=== PATIENT | male | born 1970 | race Caucasian/White ===

== ENCOUNTER 2024-06-18 12:39 | Emergency (ER) | payer OTHER ==
[~2024-06-18] VITALS: Ht 182.9 cm; Wt 68.0 kg
[2024-06-18 12:40] VITALS: O2SAT 100
[2024-06-18 13:01] VITALS: BP 174/108; PULSE 101; RESP 16; TEMP 36.7; O2SAT 97
[2024-06-18] MEDS ORDERED: KETOROLAC 30MG/ML VIAL IM ONE (15:45)
== END 2024-06-18 15:56 | disposition home or self-care (01) ==
LOC: ER 12:39
DX: M25.552 Pain in left hip (principal); M54.50 Low back pain, unspecified; I10 Essential (primary) hypertension; V19.9XXA Pedal cyclist (driver) (passenger) injured in unspecified traffic accident, initial encounter; Y92.410 Unspecified street and highway as the place of occurrence of the external cause; Y93.55 Activity, bike riding
CPT/HCPCS: 71045; 72131; 73502; 99284

== ENCOUNTER 2025-01-21 12:09 | Inpatient (IN) | payer MEDICAID ==
[~2025-01-21] VITALS: Ht 172.7 cm; Wt 54.9 kg
[~2025-01-21 12:09] MED LIST: AMLO10TA80 PO; FAMO20TA8 PO; FOLI-43 PO; LISI40TA21 PO; METO25TA6 PO; SULF1TAB47 MT; THIA100T72 PO
[2025-01-21] MEDS ORDERED: VANCOMYCIN 1000MG/250ML 250 ML IV SCH (13:30)
[2025-01-21] MEDS: SODIUM CHLORIDE 0.9% (SEPSIS BOLUS) IV ONE (13:59)
[2025-01-21 14:02] LABS: HEMATOCRIT. 40.7 % (42.0-52.0); HEMOGLOBIN. 13.3 g/dL (14.0-18.0); MEAN PLATELET VOLUME 7.1 fl (7.4-10.4); PLATELET 611 x1000/uL (130-400); RED BLOOD CELL COUNT 4.18 mill/uL (4.7-6.1); RED CELL DISTRIBUTION WIDTH 13.4 % (11.6-14.6)
[2025-01-21 14:16] LABS: INR 1.1
[2025-01-21 14:17] LABS: UREA NITROGEN BLOOD 91 mg/dL (9-23)
[2025-01-21 14:18] LABS: TROPONIN I HIGH SENSITIVITY 22 ng/L (3.0-53)
[2025-01-21 14:19] LABS: ASPARTATE AMINOTRANSFERASE 224 IU/L (<34); BILIRUBIN DIRECT 0.1 mg/dL (<=3.0); BILIRUBIN TOTAL 0.3 mg/dL (0.1-1.0)
[2025-01-21] MEDS: VANCOMYCIN 1G PREMIX 200 ML IV SCH (14:19)
[2025-01-21] MEDS: LORAZEPAM 2MG/ML UD SYRINGE IV SCH (14:19)
[2025-01-21 14:20] LABS: PROTEIN TOTAL 7.7 g/dL (6.0-8.3)
[2025-01-21 14:31] LABS: BG DEOXYHEMOGLOBIN 23.1 % (0.0-5.0)
[2025-01-21 14:35] LABS: CREATININE 6.7 mg/dL (0.6-1.3)
[2025-01-21 14:46] LABS: BAND% 25.0 % (1.0-6.0); LYMPHOCYTES % MANUAL 3.0 % (20.0-50.0); MONOCYTES % MANUAL 15.0 % (2.0-8.0); NEUTROPHILS % MANUAL 57.0 % (45.0-75.0); PLATELET ESTIMATE INCREASED
[2025-01-21] MEDS: CALCIUM GLUCONATE 1GM PREMIX 50 ML IV NR ×2 (15:03→23:59)
[2025-01-21] MEDS: DEXTROSE 50% WATER 50ML SYRINGE IV NR (15:04)
[2025-01-21] MEDS: INSULIN REGULAR (HUMULIN R) 1000UNITS/10ML VIAL IV NR (15:05)
[2025-01-21] MEDS: PIPERACILLIN/TAZO 3.375G/50ML 50 ML IV SCH ×2 (15:50→22:58)
[2025-01-21] MEDS ORDERED: ZOLPIDEM TARTRATE 5MG TABLET PO PRN (19:45)
[2025-01-21] MEDS ORDERED: ONDANSETRON HCL 4MG/2ML INJ IV PRN (19:45)
[2025-01-21] MEDS ORDERED: MAGNESIUM/ALUMINUM HYDROXIDE/SIMETHICONE 30ML UDC PO PRN (19:45)
[2025-01-21] MEDS ORDERED: LORAZEPAM 1MG TABLET PO PRN (19:45)
[2025-01-21] MEDS ORDERED: MORPHINE SULFATE 4 MG/ML INJ (FOR IV/IM USE) IV PRN (19:45)
[2025-01-21 19:53] LABS: COLOR URINE YELLOW (YELLOW); GLUCOSE URINE NEGATIVE (NEGATIVE); KETONES URINE TRACE (NEGATIVE); LEUKOCYTE ESTERASE URINE NEGATIVE (NEGATIVE); NITRITE URINE NEGATIVE (NEGATIVE); OCCULT BLOOD URINE 2+ (NEGATIVE); PH URINE 5.0 (4.5-8.0); PROTEIN URINE 1+ (NEGATIVE); SPECIFIC GRAVITY URINE 1.016 (1.005-1.030); UROBILINOGEN URINE 0.2 E.U./dL (0.2-1.0)
[2025-01-21 19:55] LABS: HEPATITIS A AB IGM NEGATIVE (Negative)
[2025-01-21 19:56] LABS: HEPATITIS B CORE AB IGM NEGATIVE (Negative); HEPATITIS C AB NON REACTIVE (Neg) (Negative)
[2025-01-21 19:57] LABS: *AMPHETAMINES SCREEN URINE PRESUMPTIVE POSITIVE (NEGATIVE); *BARBITURATES SCREEN URINE NEGATIVE (NEGATIVE); *BENZODIAZEPINES SCREEN URINE PRESUMPTIVE POSITIVE (NEGATIVE); *COCAINE SCREEN URINE PRESUMPTIVE POSITIVE (NEGATIVE)
[2025-01-21 19:58] LABS: CANNABINOID URINE SCREEN NEGATIVE (NEGATIVE); ECSTASY MDMA SCREEN URINE NEGATIVE (NEGATIVE); METHADONE URINE SCREEN NEGATIVE (NEGATIVE); OPIATES URINE SCREEN PRESUMPTIVE POSITIVE (NEGATIVE); PHENCYCLIDINE URINE SCREEN NEGATIVE (NEGATIVE)
[2025-01-21] MEDS ORDERED: NALOXONE HCL 0.4MG/ML VIAL IV PRN (20:00)
[2025-01-21 20:10] LABS: CLARITY URINE HAZY (CLEAR)
[2025-01-21 20:11] LABS: WBC URINE 0-2 /hpf (0-2)
[2025-01-21 20:12] LABS: BACTERIA URINE TRACE; COARSE GRANULAR CASTS URINE 0-5 /lpf; MUCUS URINE TRACE /lpf (NONE/TRACE); SQUAMOUS EPITHELIAL CELL URINE FEW /lpf (RARE/1+)
[2025-01-21] MEDS: METHYLPREDNISOLONE SOD SUCC 40MG/ML (ACT-O-VIAL) IV SCH (20:15)
[2025-01-21] MEDS: DEXT 5%/0.45% NACL 1000ML 1,000 ML IV SCH (20:16)
[2025-01-21] MEDS: ENOXAPARIN 30MG/0.3ML SYR SUBCUT SCH (20:17)
[2025-01-21 21:48] VITALS: BP 164/90; PULSE 107; RESP 15; TEMP 36.4736
[2025-01-21 22:10] LABS: UREA NITROGEN BLOOD 77.0 mg/dL (9-23)
[2025-01-21 22:12] LABS: TROPONIN I HIGH SENSITIVITY 18.0 ng/L (3.0-53)
[2025-01-21 22:17] LABS: CREATININE 5.1 mg/dL (0.6-1.3)
[2025-01-21] MEDS: MVI, ADULT NO.1 10 ML, FOLIC ACID 1 MG, THIAMINE HCL 100 MG in SODIUM CHLORIDE 0.9% 1,0... IV SCH (22:59)
[2025-01-21] MEDS: CHLORDIAZEPOXIDE 25MG CAPSULE PO SCH (22:59)
[2025-01-21] MEDS: VANCOMYCIN 750MG PREMIX 150 ML IV SCH (22:59)
[2025-01-21 23:00] VITALS: BP 153/94; PULSE 106; RESP 13; TEMP 36.5; O2SAT 91
[2025-01-21 23:15] VITALS: PULSE 109; RESP 15; O2SAT 92
[2025-01-21 23:30] VITALS: BP 147/101; PULSE 102; RESP 14; O2SAT 92
[2025-01-21 23:45] VITALS: PULSE 105; RESP 15; O2SAT 91
[2025-01-22] VITALS (63 sets, daily range): BP systolic 91–166; BP diastolic 61–125; PULSE 83–112; RESP 12–26; TEMP 36.3–36.7; O2SAT 91–100
[2025-01-22] MEDS: INSULIN REGULAR (HUMULIN R) 1000UNITS/10ML VIAL IV NR (00:08)
[2025-01-22 00:09] LABS: UREA NITROGEN BLOOD 80.0 mg/dL (9-23)
[2025-01-22] MEDS: SODIUM BICARBONATE 8.4% 50MEQ/50ML SYR IV NR (00:09)
[2025-01-22] MEDS: DEXTROSE 50% WATER 50ML SYRINGE IV ONE (00:09)
[2025-01-22 00:41] LABS: CREATININE 5.5 mg/dL (0.6-1.3)
[2025-01-22 05:46] LABS: HEMATOCRIT. 39.6 % (42.0-52.0); HEMOGLOBIN. 12.7 g/dL (14.0-18.0); MEAN PLATELET VOLUME 7.1 fl (7.4-10.4); PLATELET 518 x1000/uL (130-400); RED BLOOD CELL COUNT 4.07 mill/uL (4.7-6.1); RED CELL DISTRIBUTION WIDTH 13.7 % (11.6-14.6)
[2025-01-22 06:14] LABS: TROPONIN I HIGH SENSITIVITY 15.0 ng/L (3.0-53)
[2025-01-22 06:15] LABS: CREATININE 4.8 mg/dL (0.6-1.3); UREA NITROGEN BLOOD 84.0 mg/dL (9-23)
[2025-01-22] MEDS: PANTOPRAZOLE SODIUM 40 MG/VIAL IV SCH (08:36)
[2025-01-22 08:56] LABS: BG BASE EXCESS -5.9 mmol/L (-2.0-3.0); BG CARBOXYHEMOGLOBIN 0.6 % (0.5-1.5); BG DEOXYHEMOGLOBIN 3.8 % (0.0-5.0); BG FLOW(L/min) 7.00 L/min; BG FRACTION INSPIRED OXYGEN 50; BG HCO3 ACT 18.1 mmol/L (21.0-28.0); BG METHEMOGLOBIN 0.3 % (0.5-1.5); BG OXYGEN SATURATION 96.2 % (94.0-98.0); BG OXYHEMOGLOBIN 95.3 % (94.0-98.0); BG PCO2 31.3 mmHg (35.0-48.0); BG PH 7.379 (7.350-7.450); BG PO2 84.7 mmHg (83.0-108.0); BG SAMPLE SITE RIGHT RADIAL; BG TOTAL HEMOGLOBIN 13.5 g/dL (13.5-17.5); BG VENT MODE MASK - SIMPLE
[2025-01-22] MEDS: SODIUM ZIRCONIUM CYCLOSILICATE 10GM/PACKET PO NR (09:25)
[2025-01-22] MEDS: SODIUM BICARBONATE 650MG TABLET PO SCH (09:25)
[2025-01-22 10:16] LABS: CLARITY URINE CLOUDY (CLEAR); COLOR URINE YELLOW (YELLOW); GLUCOSE URINE NEGATIVE (NEGATIVE); KETONES URINE NEGATIVE (NEGATIVE); LEUKOCYTE ESTERASE URINE NEGATIVE (NEGATIVE); NITRITE URINE NEGATIVE (NEGATIVE); OCCULT BLOOD URINE 1+ (NEGATIVE); PH URINE 5.0 (4.5-8.0); PROTEIN URINE 1+ (NEGATIVE); SPECIFIC GRAVITY URINE 1.016 (1.005-1.030); UROBILINOGEN URINE 0.2 E.U./dL (0.2-1.0)
[2025-01-22 10:30] LABS: *AMPHETAMINES SCREEN URINE NEGATIVE (NEGATIVE)
[2025-01-22 10:31] LABS: *BARBITURATES SCREEN URINE NEGATIVE (NEGATIVE); *BENZODIAZEPINES SCREEN URINE PRESUMPTIVE POSITIVE (NEGATIVE); *COCAINE SCREEN URINE PRESUMPTIVE POSITIVE (NEGATIVE); CANNABINOID URINE SCREEN NEGATIVE (NEGATIVE); ECSTASY MDMA SCREEN URINE NEGATIVE (NEGATIVE); METHADONE URINE SCREEN NEGATIVE (NEGATIVE); OPIATES URINE SCREEN PRESUMPTIVE POSITIVE (NEGATIVE); PHENCYCLIDINE URINE SCREEN NEGATIVE (NEGATIVE)
[2025-01-22 11:28] LABS: URIC ACID CRYSTALS URINE 3+ /lpf
[2025-01-22 11:30] LABS: BACTERIA URINE 1+; SQUAMOUS EPITHELIAL CELL URINE NONE SEEN /lpf (RARE/1+); WBC URINE 0-2 /hpf (0-2)
[2025-01-22 12:35] LABS: ASPARTATE AMINOTRANSFERASE 147 IU/L (<34); BILIRUBIN DIRECT < 0.1 mg/dL (<=3.0); BILIRUBIN TOTAL 0.2 mg/dL (0.1-1.0); PROTEIN TOTAL 6.4 g/dL (6.0-8.3)
[2025-01-22 13:24] LABS: BAND% 28.0 % (1.0-6.0); EOSINOPHILS % MANUAL 1.0 % (0.0-5.0); LYMPHOCYTES % MANUAL 4.0 % (20.0-50.0); MONOCYTES % MANUAL 2.0 % (2.0-8.0); NEUTROPHILS % MANUAL 65.0 % (45.0-75.0)
[2025-01-22 13:25] LABS: PLATELET ESTIMATE INCREASED
[2025-01-22] MEDS ORDERED: CLOTRIMAZOLE/BETAMETHASONE 1/0.05% CREAM 15GM TOP SCH (15:00)
[2025-01-22] MEDS: HYDROCODONE/ACETAMINOPHEN 5/325MG TABLET PO PRN (16:48)
[2025-01-22] MEDS: SODIUM ZIRCONIUM CYCLOSILICATE 10GM/PACKET PO SCH (19:30)
[2025-01-22] MEDS: LORAZEPAM 2MG/ML UD SYRINGE IV PRN (19:51)
[2025-01-22] MEDS: VITAMINS A AND D OINT TUBE TOP SCH (20:45)
[2025-01-22] MEDS: DEXMEDETOMIDINE 250 ML IV PRN (22:35)
[2025-01-23] VITALS (55 sets, daily range): BP systolic 115–178; BP diastolic 69–107; PULSE 72–97; RESP 15–45; TEMP 36.3–36.7; O2SAT 85–100
[2025-01-23 07:01] LABS: HEMATOCRIT. 36.7 % (42.0-52.0); HEMOGLOBIN. 12.1 g/dL (14.0-18.0); MEAN PLATELET VOLUME 7.3 fl (7.4-10.4); PLATELET 410 x1000/uL (130-400); RED BLOOD CELL COUNT 3.84 mill/uL (4.7-6.1); RED CELL DISTRIBUTION WIDTH 13.5 % (11.6-14.6)
[2025-01-23 07:21] LABS: UREA NITROGEN BLOOD 69.0 mg/dL (9-23)
[2025-01-23 07:53] LABS: CREATININE 3.0 mg/dL (0.6-1.3)
[2025-01-23 10:53] LABS: BG BASE EXCESS -4.1 mmol/L (-2.0-3.0); BG CARBOXYHEMOGLOBIN 0.6 % (0.5-1.5); BG DEOXYHEMOGLOBIN 6.9 % (0.0-5.0); BG FRACTION INSPIRED OXYGEN 21; BG HCO3 ACT 18.9 mmol/L (21.0-28.0); BG METHEMOGLOBIN 0.3 % (0.5-1.5); BG OXYGEN SATURATION 93.0 % (94.0-98.0); BG OXYHEMOGLOBIN 92.2 % (94.0-98.0); BG PCO2 28.9 mmHg (35.0-48.0); BG PH 7.433 (7.350-7.450); BG PO2 67.7 mmHg (83.0-108.0); BG SAMPLE SITE RIGHT RADIAL; BG TOTAL HEMOGLOBIN 13.6 g/dL (13.5-17.5); BG VENT MODE ROOM AIR
[2025-01-23 14:22] LABS: BAND% 10.0 % (1.0-6.0); LYMPHOCYTES % MANUAL 2.0 % (20.0-50.0); MONOCYTES % MANUAL 12.0 % (2.0-8.0); NEUTROPHILS % MANUAL 76.0 % (45.0-75.0); PLATELET ESTIMATE SLIGHTLY INCREASED
[2025-01-23] MEDS: VANCOMYCIN 1.25GM/250ML IV SCH (14:24)
[2025-01-23] MEDS: PIPERACILLIN/TAZO 3.375G/50ML 50 ML IV SCH (15:17)
[2025-01-24] VITALS (71 sets, daily range): BP systolic 106–207; BP diastolic 70–124; PULSE 64–113; RESP 19–47; TEMP 36.3–37; O2SAT 87–100
[2025-01-24 00:01] LABS: BG BASE EXCESS -6.0 mmol/L (-2.0-3.0); BG CARBOXYHEMOGLOBIN 1.2 % (0.5-1.5); BG DEOXYHEMOGLOBIN 8.4 % (0.0-5.0); BG FLOW(L/min) 6.00 L/min; BG FRACTION INSPIRED OXYGEN 44; BG HCO3 ACT 18.1 mmol/L (21.0-28.0); BG METHEMOGLOBIN 0.0 % (0.5-1.5); BG OXYGEN SATURATION 91.5 % (94.0-98.0); BG OXYHEMOGLOBIN 90.4 % (94.0-98.0); BG PCO2 32.2 mmHg (35.0-48.0); BG PH 7.368 (7.350-7.450); BG PO2 66.7 mmHg (83.0-108.0); BG SAMPLE SITE LEFT RADIAL; BG TOTAL HEMOGLOBIN 15.5 g/dL (13.5-17.5); BG VENT MODE NASAL CANNULA
[2025-01-24] MEDS: LORAZEPAM 2MG/ML UD SYRINGE IV PRN (01:30)
[2025-01-24 06:02] LABS: HEMATOCRIT. 45.0 % (42.0-52.0); HEMOGLOBIN. 14.5 g/dL (14.0-18.0); MEAN PLATELET VOLUME 7.3 fl (7.4-10.4); PLATELET 377 x1000/uL (130-400); RED BLOOD CELL COUNT 4.57 mill/uL (4.7-6.1); RED CELL DISTRIBUTION WIDTH 13.9 % (11.6-14.6)
[2025-01-24 06:37] LABS: CREATININE 2.1 mg/dL (0.6-1.3)
[2025-01-24 06:38] LABS: UREA NITROGEN BLOOD 47.0 mg/dL (9-23)
[2025-01-24 08:59] LABS: BAND% 8.0 % (1.0-6.0); EOSINOPHILS % MANUAL 1.0 % (0.0-5.0); LYMPHOCYTES % MANUAL 7.0 % (20.0-50.0); MONOCYTES % MANUAL 6.0 % (2.0-8.0); NEUTROPHILS % MANUAL 78.0 % (45.0-75.0); NUCLEATED RED BLOOD CELLS 2 /100 WBC; PLATELET ESTIMATE NORMAL
[2025-01-24] MEDS: CLONIDINE 0.1MG TABLET PO PRN (09:02)
[2025-01-24] MEDS: CLOTRIMAZOLE/BETAMETHASONE 1/0.05% CREAM 15GM TOP SCH (09:02)
[2025-01-24 09:10] LABS: ALPHA FETOPROTEIN TUMOR MARKER < 1.8 ng/mL (0.0-8.4); CARCINOEMBRYONIC AG - SEND OUT 9.5 ng/mL (0.0-4.7); PROSTATE SPECIFIC AG TOTAL 5.1 ng/mL (0.0-4.0)
[2025-01-24] MEDS ORDERED: LACTULOSE 20G/30ML UDC NG PRN (12:30)
[2025-01-24] MEDS: HYDRALAZINE 20MG/ML VIAL IV PRN (13:42)
[2025-01-24 15:00] LABS: BG BASE EXCESS -5.3 mmol/L (-2.0-3.0); BG CARBOXYHEMOGLOBIN 1.2 % (0.5-1.5); BG DEOXYHEMOGLOBIN 4.0 % (0.0-5.0); BG FLOW(L/min) 10.00 L/min; BG FRACTION INSPIRED OXYGEN 44; BG HCO3 ACT 16.2 mmol/L (21.0-28.0); BG METHEMOGLOBIN 0.3 % (0.5-1.5); BG OXYGEN SATURATION 95.9 % (94.0-98.0); BG OXYHEMOGLOBIN 94.5 % (94.0-98.0); BG PCO2 23.1 mmHg (35.0-48.0); BG PH 7.465 (7.350-7.450); BG PO2 77.8 mmHg (83.0-108.0); BG SAMPLE SITE RIGHT RADIAL; BG TOTAL HEMOGLOBIN 14.7 g/dL (13.5-17.5); BG VENT MODE NASAL CANNULA
[2025-01-24] MEDS: LACTATED RINGERS 1,000 ML IV SCH (16:34)
[2025-01-25] VITALS (103 sets, daily range): BP systolic 100–160; BP diastolic 60–146; PULSE 61–90; RESP 16–38; TEMP 36.4–37.2; O2SAT 82–100
[2025-01-25 06:11] LABS: HEMATOCRIT. 36.4 % (42.0-52.0); HEMOGLOBIN. 11.7 g/dL (14.0-18.0); MEAN PLATELET VOLUME 7.3 fl (7.4-10.4); PLATELET 343 x1000/uL (130-400); RED BLOOD CELL COUNT 3.77 mill/uL (4.7-6.1); RED CELL DISTRIBUTION WIDTH 13.3 % (11.6-14.6)
[2025-01-25 06:21] LABS: CREATININE 1.7 mg/dL (0.6-1.3); UREA NITROGEN BLOOD 35.0 mg/dL (9-23)
[2025-01-25] MEDS: SODIUM CHLORIDE 0.45% 1,000 ML IV SCH (08:40)
[2025-01-25] MEDS ORDERED: LACTATED RINGERS 1,000 ML IV SCH (15:15)
[2025-01-25] MEDS: QUETIAPINE FUMARATE 25MG TABLET PO SCH (20:31)
[2025-01-25 21:12] LABS: BAND% 7.0 % (1.0-6.0); LYMPHOCYTES % MANUAL 8.0 % (20.0-50.0); MONOCYTES % MANUAL 16.0 % (2.0-8.0); MYELOCYTES % 2.0 % (0-0); NEUTROPHILS % MANUAL 67.0 % (45.0-75.0); NUCLEATED RED BLOOD CELLS 1 /100 WBC; PLATELET ESTIMATE NORMAL
[2025-01-25] MEDS: METHYLPREDNISOLONE SOD SUCC 40MG/ML (ACT-O-VIAL) IV SCH (22:27)
[2025-01-26] VITALS (84 sets, daily range): BP systolic 113–164; BP diastolic 65–103; PULSE 72–94; RESP 18–51; TEMP 36.7–37.3; O2SAT 93–100
[2025-01-26 05:46] LABS: HEMATOCRIT. 39.4 % (42.0-52.0); HEMOGLOBIN. 12.6 g/dL (14.0-18.0); MEAN PLATELET VOLUME 7.5 fl (7.4-10.4); PLATELET 428 x1000/uL (130-400); RED BLOOD CELL COUNT 4.08 mill/uL (4.7-6.1); RED CELL DISTRIBUTION WIDTH 13.5 % (11.6-14.6)
[2025-01-26 06:07] LABS: CREATININE 1.5 mg/dL (0.6-1.3)
[2025-01-26 06:08] LABS: UREA NITROGEN BLOOD 26 mg/dL (9-23)
[2025-01-26 06:10] LABS: PHOSPHORUS 3.9 mg/dL (2.5-4.9)
[2025-01-26 08:20] LABS: BG BASE EXCESS -6.9 mmol/L (-2.0-3.0); BG CARBOXYHEMOGLOBIN 0.5 % (0.5-1.5); BG DEOXYHEMOGLOBIN 9.0 % (0.0-5.0); BG FLOW(L/min) 30.00 L/min; BG FRACTION INSPIRED OXYGEN 40; BG HCO3 ACT 15.6 mmol/L (21.0-28.0); BG METHEMOGLOBIN 0.3 % (0.5-1.5); BG OXYGEN SATURATION 90.9 % (94.0-98.0); BG OXYHEMOGLOBIN 90.2 % (94.0-98.0); BG PCO2 24.4 mmHg (35.0-48.0); BG PH 7.423 (7.350-7.450); BG PO2 60.7 mmHg (83.0-108.0); BG SAMPLE SITE RIGHT RADIAL; BG TOTAL HEMOGLOBIN 14.0 g/dL (13.5-17.5); BG VENT MODE HIGH FLOW
[2025-01-26] MEDS ORDERED: TRIAMCINOLONE ACETONIDE 0.1 % OINT 15GM TOP SCH (09:00)
[2025-01-26 09:08] LABS: BAND% 5.0 % (1.0-6.0); LYMPHOCYTES % MANUAL 2.0 % (20.0-50.0); MONOCYTES % MANUAL 4.0 % (2.0-8.0); NEUTROPHILS % MANUAL 89.0 % (45.0-75.0); PLATELET ESTIMATE INCREASED
[2025-01-26] MEDS: MAGNESIUM 2 G PREMIX 50 ML IV ONE (09:39)
[2025-01-26] MEDS ORDERED: IPRATROPIUM/ALBUTEROL 0.5-3(2.5)MG/3ML NEB HHN PRN (16:45)
[2025-01-26] MEDS: RISPERIDONE 0.5MG TABLET PO SCH (22:15)
[2025-01-27] VITALS (70 sets, daily range): BP systolic 143–206; BP diastolic 82–161; PULSE 71–130; RESP 18–51; TEMP 37–37.2; O2SAT 90–100
[2025-01-27 05:41] LABS: HEMATOCRIT. 37.7 % (42.0-52.0); HEMOGLOBIN. 12.4 g/dL (14.0-18.0); MEAN PLATELET VOLUME 7.6 fl (7.4-10.4); PLATELET 483 x1000/uL (130-400); RED BLOOD CELL COUNT 3.93 mill/uL (4.7-6.1); RED CELL DISTRIBUTION WIDTH 13.6 % (11.6-14.6)
[2025-01-27 05:53] LABS: CREATININE 1.3 mg/dL (0.6-1.3); UREA NITROGEN BLOOD 26 mg/dL (9-23)
[2025-01-27 06:02] LABS: INR 1.1
[2025-01-27 09:16] LABS: BG BASE EXCESS -4.6 mmol/L (-2.0-3.0); BG CARBOXYHEMOGLOBIN 0.8 % (0.5-1.5); BG DEOXYHEMOGLOBIN 5.8 % (0.0-5.0); BG FLOW(L/min) 30.00 L/min; BG FRACTION INSPIRED OXYGEN 40; BG HCO3 ACT 18.4 mmol/L (21.0-28.0); BG METHEMOGLOBIN 0.3 % (0.5-1.5); BG OXYGEN SATURATION 94.1 % (94.0-98.0); BG OXYHEMOGLOBIN 93.1 % (94.0-98.0); BG PCO2 28.6 mmHg (35.0-48.0); BG PH 7.426 (7.350-7.450); BG PO2 73.5 mmHg (83.0-108.0); BG SAMPLE SITE RIGHT RADIAL; BG TOTAL HEMOGLOBIN 13.4 g/dL (13.5-17.5); BG VENT MODE HIGH FLOW
[2025-01-27] MEDS: HALOPERIDOL LACTATE 5MG/ML VIAL IM PRN (10:29)
[2025-01-27 12:01] LABS: BAND% 6.0 % (1.0-6.0); LYMPHOCYTES % MANUAL 5.0 % (20.0-50.0); MONOCYTES % MANUAL 7.0 % (2.0-8.0); NEUTROPHILS % MANUAL 82.0 % (45.0-75.0); PLATELET ESTIMATE INCREASED
[2025-01-27] MEDS: CHLORDIAZEPOXIDE 25MG CAPSULE NG SCH (13:04)
[2025-01-27] MEDS: HYDRALAZINE 20MG/ML VIAL IV NR (13:05)
[2025-01-27] MEDS ORDERED: CHLORDIAZEPOXIDE 25MG CAPSULE PO PRN ×3 (13:30)
[2025-01-27] MEDS ORDERED: PHENOBARBITAL 30 MG TABLET PO PRN (13:30)
[2025-01-27] MEDS: FOLIC ACID 1MG TABLET PO SCH (14:16)
[2025-01-27] MEDS: LORAZEPAM 1MG TABLET PO PRN ×2 (14:16→20:13)
[2025-01-27 14:21] LABS: PHOSPHORUS 3.8 mg/dL (2.5-4.9)
[2025-01-27] MEDS: IPRATROPIUM/ALBUTEROL 0.5-3(2.5)MG/3ML NEB HHN SCH (17:41)
[2025-01-27] MEDS: PHENOBARBITAL 30 MG TABLET PO PRN (19:35)
[2025-01-27] MEDS: AMLODIPINE 5MG TABLET NG SCH (20:14)
[2025-01-27] MEDS: PIPERACILLIN/TAZO 3.375G/50ML 50 ML IV SCH (22:03)
[2025-01-28] VITALS (87 sets, daily range): BP systolic 116–191; BP diastolic 70–143; PULSE 69–129; RESP 15–52; TEMP 37.1–37.3; O2SAT 76–100
[2025-01-28] MEDS: DEXMEDETOMIDINE 250 ML IV PRN (01:14)
[2025-01-28 07:16] LABS: HEMATOCRIT. 42.0 % (42.0-52.0); HEMOGLOBIN. 13.4 g/dL (14.0-18.0); MEAN PLATELET VOLUME 7.8 fl (7.4-10.4); PLATELET 554 x1000/uL (130-400); RED BLOOD CELL COUNT 4.39 mill/uL (4.7-6.1); RED CELL DISTRIBUTION WIDTH 13.9 % (11.6-14.6)
[2025-01-28 07:25] LABS: CREATININE 1.2 mg/dL (0.6-1.3); UREA NITROGEN BLOOD 21 mg/dL (9-23)
[2025-01-28] MEDS: ACETYLCYSTEINE 200MG/ML 20% VIAL 4ML INH SCH (07:55)
[2025-01-28] MEDS: THIAMINE HCL 100 MG/1 ML 2ML VIAL IM SCH (08:31)
[2025-01-28] MEDS: ZINC SULFATE 220 MG ( 50 ) CAPSULE PO SCH (08:32)
[2025-01-28] MEDS: MULTIVITAMINS,THER W-MINERALS TABLET PO SCH (08:32)
[2025-01-28] MEDS: ASCORBIC ACID 500 MG TABLET PO SCH (08:32)
[2025-01-28 08:48] LABS: BG BASE EXCESS -4.2 mmol/L (-2.0-3.0); BG CARBOXYHEMOGLOBIN 0.9 % (0.5-1.5); BG DEOXYHEMOGLOBIN 7.1 % (0.0-5.0); BG FLOW(L/min) 25.00 L/min; BG FRACTION INSPIRED OXYGEN 30; BG HCO3 ACT 17.0 mmol/L (21.0-28.0); BG METHEMOGLOBIN 0.3 % (0.5-1.5); BG OXYGEN SATURATION 92.8 % (94.0-98.0); BG OXYHEMOGLOBIN 91.7 % (94.0-98.0); BG PCO2 22.5 mmHg (35.0-48.0); BG PH 7.496 (7.350-7.450); BG PO2 64.7 mmHg (83.0-108.0); BG SAMPLE SITE RIGHT RADIAL; BG TOTAL HEMOGLOBIN 13.8 g/dL (13.5-17.5); BG VENT MODE HIGH FLOW
[2025-01-28] MEDS ORDERED: MULTIVITAMINS,THER W-MINERALS TABLET PO SCH (09:00)
[2025-01-28] MEDS ORDERED: THIAMINE HCL 100MG TABLET PO SCH (09:00)
[2025-01-28] MEDS: LABETALOL 5MG/ML 4ML INJ IV SCH (11:19)
[2025-01-28] MEDS: LORAZEPAM 1MG TABLET PO PRN (11:38)
[2025-01-28 13:02] LABS: BAND% 4.0 % (1.0-6.0); LYMPHOCYTES % MANUAL 2.0 % (20.0-50.0); MONOCYTES % MANUAL 6.0 % (2.0-8.0); NEUTROPHILS % MANUAL 88.0 % (45.0-75.0); PLATELET ESTIMATE INCREASED
[2025-01-28] MEDS ORDERED: CHLORDIAZEPOXIDE 25MG CAPSULE NG PRN ×2 (13:51→13:52)
[2025-01-28] MEDS: OLANZAPINE 5MG TABLET PO SCH (18:28)
[2025-01-28] MEDS: QUETIAPINE FUMARATE 50MG TABLET PO SCH (22:57)
[2025-01-29] VITALS (34 sets, daily range): BP systolic 140–188; BP diastolic 72–144; PULSE 87–132; RESP 17–35; TEMP 36.6–37.6; O2SAT 81–100
[2025-01-29] MEDS: CHLORDIAZEPOXIDE 25MG CAPSULE NG PRN (04:10)
[2025-01-29] MEDS: ASCORBIC ACID 500 MG TABLET NG SCH (10:04)
[2025-01-29 11:52] LABS: HEMATOCRIT. 39.1 % (42.0-52.0); HEMOGLOBIN. 12.9 g/dL (14.0-18.0); MEAN PLATELET VOLUME 7.3 fl (7.4-10.4); PLATELET 655 x1000/uL (130-400); RED BLOOD CELL COUNT 4.20 mill/uL (4.7-6.1); RED CELL DISTRIBUTION WIDTH 13.6 % (11.6-14.6)
[2025-01-29 12:06] LABS: CREATININE 1.2 mg/dL (0.6-1.3); UREA NITROGEN BLOOD 25 mg/dL (9-23)
[2025-01-29 13:33] LABS: PHOSPHORUS 2.7 mg/dL (2.5-4.9)
[2025-01-29 13:56] LABS: BAND% 1.0 % (1.0-6.0); LYMPHOCYTES % MANUAL 1.0 % (20.0-50.0); MONOCYTES % MANUAL 7.0 % (2.0-8.0); NEUTROPHILS % MANUAL 91.0 % (45.0-75.0)
[2025-01-29 13:57] LABS: PLATELET ESTIMATE INCREASED
[2025-01-30] VITALS (11 sets, daily range): BP systolic 114–164; BP diastolic 78–106; PULSE 88–121; RESP 18–28; TEMP 36.4–36.6; O2SAT 96–100
[2025-01-30] MEDS: MAGNESIUM 2 G PREMIX 50 ML IV SCH (10:40)
[2025-01-31] VITALS (12 sets, daily range): BP systolic 100–140; BP diastolic 63–87; PULSE 85–124; RESP 16–22; TEMP 36.5–37.2; O2SAT 96–100
[2025-01-31 06:51] LABS: HEMATOCRIT. 37.1 % (42.0-52.0); HEMOGLOBIN. 12.1 g/dL (14.0-18.0); MEAN PLATELET VOLUME 7.6 fl (7.4-10.4); PLATELET 459 x1000/uL (130-400); RED BLOOD CELL COUNT 3.90 mill/uL (4.7-6.1); RED CELL DISTRIBUTION WIDTH 13.6 % (11.6-14.6)
[2025-01-31 07:02] LABS: CREATININE 1.4 mg/dL (0.6-1.3)
[2025-01-31 07:03] LABS: UREA NITROGEN BLOOD 22 mg/dL (9-23)
[2025-01-31 07:05] LABS: PHOSPHORUS 3.6 mg/dL (2.5-4.9)
[2025-01-31] MEDS: THIAMINE HCL 100MG TABLET PO SCH (08:44)
[2025-01-31 11:06] LABS: BAND% 1.0 % (1.0-6.0); EOSINOPHILS % MANUAL 2.0 % (0.0-5.0); LYMPHOCYTES % MANUAL 3.0 % (20.0-50.0); MONOCYTES % MANUAL 7.0 % (2.0-8.0); NEUTROPHILS % MANUAL 87.0 % (45.0-75.0); PLATELET ESTIMATE INCREASED
[2025-01-31] MEDS: CHLORDIAZEPOXIDE 25MG CAPSULE PO SCH (13:40)
[2025-02-01] VITALS (12 sets, daily range): BP systolic 113–135; BP diastolic 59–78; PULSE 94–131; RESP 18–35; TEMP 36.7–37.7; O2SAT 91–98
[2025-02-01 09:16] LABS: BG BASE EXCESS -3.7 mmol/L (-2.0-3.0); BG CARBOXYHEMOGLOBIN 1.0 % (0.5-1.5); BG DEOXYHEMOGLOBIN 8.5 % (0.0-5.0); BG FLOW(L/min) 5.00 L/min; BG FRACTION INSPIRED OXYGEN 40; BG HCO3 ACT 18.8 mmol/L (21.0-28.0); BG METHEMOGLOBIN 0.3 % (0.5-1.5); BG OXYGEN SATURATION 91.4 % (94.0-98.0); BG OXYHEMOGLOBIN 90.2 % (94.0-98.0); BG PCO2 27.2 mmHg (35.0-48.0); BG PH 7.457 (7.350-7.450); BG PO2 59.8 mmHg (83.0-108.0); BG SAMPLE SITE RIGHT BRACHIAL; BG TOTAL HEMOGLOBIN 13.3 g/dL (13.5-17.5); BG VENT MODE NASAL CANNULA
[2025-02-01 16:49] LABS: BG BASE EXCESS -5.8 mmol/L (-2.0-3.0); BG CARBOXYHEMOGLOBIN 0.8 % (0.5-1.5); BG DEOXYHEMOGLOBIN 10.7 % (0.0-5.0); BG FLOW(L/min) 6.00 L/min; BG FRACTION INSPIRED OXYGEN 44; BG HCO3 ACT 19.2 mmol/L (21.0-28.0); BG METHEMOGLOBIN 0.3 % (0.5-1.5); BG OXYGEN SATURATION 89.2 % (94.0-98.0); BG OXYHEMOGLOBIN 88.2 % (94.0-98.0); BG PCO2 36.4 mmHg (35.0-48.0); BG PH 7.341 (7.350-7.450); BG PO2 61.4 mmHg (83.0-108.0); BG SAMPLE SITE LEFT BRACHIAL; BG TOTAL HEMOGLOBIN 13.1 g/dL (13.5-17.5); BG VENT MODE NASAL CANNULA
[2025-02-01] MEDS: QUETIAPINE FUMARATE 25MG TABLET PO SCH (21:28)
[2025-02-02] VITALS (29 sets, daily range): BP systolic 105–152; BP diastolic 47–124; PULSE 98–120; RESP 16–37; TEMP 36.7–38.2; O2SAT 18–99
[2025-02-02 06:07] LABS: HEMOGLOBIN. 12.0 g/dL (14.0-18.0)
[2025-02-02 06:09] LABS: HEMATOCRIT. 36.6 % (42.0-52.0); MEAN PLATELET VOLUME 7.9 fl (7.4-10.4); PLATELET 409 x1000/uL (130-400); RED BLOOD CELL COUNT 3.85 mill/uL (4.7-6.1); RED CELL DISTRIBUTION WIDTH 13.8 % (11.6-14.6)
[2025-02-02 06:24] LABS: CREATININE 1.6 mg/dL (0.6-1.3)
[2025-02-02 06:25] LABS: UREA NITROGEN BLOOD 35 mg/dL (9-23)
[2025-02-02 06:26] LABS: ASPARTATE AMINOTRANSFERASE 16 IU/L (<34)
[2025-02-02 06:27] LABS: BILIRUBIN TOTAL 0.4 mg/dL (0.1-1.0); PROTEIN TOTAL 5.9 g/dL (6.0-8.3)
[2025-02-02 11:52] LABS: BG BASE EXCESS -5.1 mmol/L (-2.0-3.0); BG CARBOXYHEMOGLOBIN 0.5 % (0.5-1.5); BG DEOXYHEMOGLOBIN 7.9 % (0.0-5.0); BG FLOW(L/min) 15.00 L/min; BG FRACTION INSPIRED OXYGEN 100; BG HCO3 ACT 18.2 mmol/L (21.0-28.0); BG METHEMOGLOBIN 0.3 % (0.5-1.5); BG OXYGEN SATURATION 92.0 % (94.0-98.0); BG OXYHEMOGLOBIN 91.3 % (94.0-98.0); BG PCO2 29.0 mmHg (35.0-48.0); BG PH 7.415 (7.350-7.450); BG PO2 64.4 mmHg (83.0-108.0); BG SAMPLE SITE RIGHT BRACHIAL; BG TOTAL HEMOGLOBIN 12.5 g/dL (13.5-17.5); BG VENT MODE MASK - NRB
[2025-02-02 13:36] LABS: BAND% 34.0 % (1.0-6.0); LYMPHOCYTES % MANUAL 8.0 % (20.0-50.0); MONOCYTES % MANUAL 17.0 % (2.0-8.0); NEUTROPHILS % MANUAL 41.0 % (45.0-75.0); PLATELET ESTIMATE SLIGHTLY INCREASED
[2025-02-02] MEDS ORDERED: ETOMIDATE 2MG/ML 10ML VIAL IV ONE (14:15)
[2025-02-02] MEDS ORDERED: ROCURONIUM BROMIDE 10MG/ML VIAL 5ML IV ONE (14:15)
[2025-02-02] MEDS: ACETAMINOPHEN 325MG TABLET PO PRN (15:47)
[2025-02-02 16:21] LABS: BG BASE EXCESS -4.6 mmol/L (-2.0-3.0); BG CARBOXYHEMOGLOBIN 0.3 % (0.5-1.5); BG DEOXYHEMOGLOBIN 8.7 % (0.0-5.0); BG FLOW(L/min) 40.00 L/min; BG FRACTION INSPIRED OXYGEN 100; BG HCO3 ACT 18.6 mmol/L (21.0-28.0); BG METHEMOGLOBIN 0.3 % (0.5-1.5); BG OXYGEN SATURATION 91.2 % (94.0-98.0); BG OXYHEMOGLOBIN 90.7 % (94.0-98.0); BG PCO2 29.0 mmHg (35.0-48.0); BG PH 7.425 (7.350-7.450); BG PO2 62.2 mmHg (83.0-108.0); BG SAMPLE SITE LEFT RADIAL; BG TOTAL HEMOGLOBIN 12.7 g/dL (13.5-17.5); BG VENT MODE HIGH FLOW
[2025-02-02] MEDS: METHYLPREDNISOLONE SOD SUCC 125MG/2ML (ACT-O-VIAL) IV SCH (18:18)
[2025-02-02] MEDS: SODIUM CHLORIDE 10% FOR INH 15ML NEB INH SCH (20:18)
[2025-02-02] MEDS: PIPERACILLIN/TAZO 3.375G/50ML 50 ML IV SCH (21:00)
[2025-02-02] MEDS ORDERED: VASOPRESSIN 20 UNIT in SODIUM CHLORIDE 0.9% 99 ML IV PRN (22:00)
[2025-02-02] MEDS ORDERED: EPINEPHRINE 5 MG in SODIUM CHLORIDE 0.9% 245 ML IV PRN (22:00)
[2025-02-02] MEDS ORDERED: DOPAMINE 400MG/250ML PREMIX 250 ML IV PRN (22:00)
[2025-02-02] MEDS ORDERED: PHENYLEPHRINE 50MG/250ML PMX 250 ML IV PRN (22:00)
[2025-02-02] MEDS ORDERED: FENTANYL 2500MCG/250ML PMX 250 ML IV ONE (22:30)
[2025-02-02] MEDS: MIDAZOLAM 100MG/100ML PMX 100 ML IV PRN (22:56)
[2025-02-02] MEDS: FENTANYL CITRATE 2,500 MCG in SODIUM CHLORIDE 0.9% 200 ML IV PRN (22:57)
[2025-02-02] MEDS: NOREPINEPHRINE 8MG/250ML PMX 250 ML IV PRN (23:17)
[2025-02-03] VITALS (103 sets, daily range): BP systolic 104–148; BP diastolic 68–111; PULSE 87–110; RESP 11–34; TEMP 36.5–37.3; O2SAT 91–100
[2025-02-03 01:34] LABS: BG BASE EXCESS -6.6 mmol/L (-2.0-3.0); BG CARBOXYHEMOGLOBIN 0.4 % (0.5-1.5); BG DEOXYHEMOGLOBIN 0.4 % (0.0-5.0); BG FRACTION INSPIRED OXYGEN 100; BG HCO3 ACT 19.8 mmol/L (21.0-28.0); BG METHEMOGLOBIN 0.0 % (0.5-1.5); BG OXYGEN SATURATION 99.6 % (94.0-98.0); BG OXYHEMOGLOBIN 99.2 % (94.0-98.0); BG PCO2 43.1 mmHg (35.0-48.0); BG PEEP (cmH2O) 5.0 cmH2O; BG PH 7.281 (7.350-7.450); BG PO2 269.8 mmHg (83.0-108.0); BG SAMPLE SITE RIGHT RADIAL; BG TIDAL VOLUME(mL) 450.0 mL; BG TOTAL HEMOGLOBIN 11.5 g/dL (13.5-17.5); BG VENT MODE VENT - AC; BG VENT RATE 18.0 set
[2025-02-03 06:46] LABS: HEMATOCRIT. 32.1 % (42.0-52.0); HEMOGLOBIN. 10.6 g/dL (14.0-18.0); MEAN PLATELET VOLUME 8.1 fl (7.4-10.4); PLATELET 414 x1000/uL (130-400); RED BLOOD CELL COUNT 3.38 mill/uL (4.7-6.1); RED CELL DISTRIBUTION WIDTH 13.5 % (11.6-14.6)
[2025-02-03 06:58] LABS: CREATININE 1.7 mg/dL (0.6-1.3); UREA NITROGEN BLOOD 49 mg/dL (9-23)
[2025-02-03 07:00] LABS: PHOSPHORUS 6.3 mg/dL (2.5-4.9)
[2025-02-03 08:45] LABS: BAND% 25.0 % (1.0-6.0); LYMPHOCYTES % MANUAL 1.0 % (20.0-50.0); MONOCYTES % MANUAL 6.0 % (2.0-8.0); NEUTROPHILS % MANUAL 68.0 % (45.0-75.0); PLATELET ESTIMATE SLIGHTLY INCREASED
[2025-02-03 10:19] LABS: ASPARTATE AMINOTRANSFERASE 23 IU/L (<34); BILIRUBIN DIRECT 0.1 mg/dL (<=3.0); BILIRUBIN TOTAL 0.2 mg/dL (0.1-1.0); PROTEIN TOTAL 5.5 g/dL (6.0-8.3)
[2025-02-04] VITALS (109 sets, daily range): BP systolic 109–152; BP diastolic 57–107; PULSE 76–106; RESP 9–40; TEMP 36.6–37.2; O2SAT 96–100
[2025-02-04 06:49] LABS: HEMATOCRIT. 31.9 % (42.0-52.0); HEMOGLOBIN. 10.5 g/dL (14.0-18.0); MEAN PLATELET VOLUME 7.7 fl (7.4-10.4); PLATELET 467 x1000/uL (130-400); RED BLOOD CELL COUNT 3.37 mill/uL (4.7-6.1); RED CELL DISTRIBUTION WIDTH 14.1 % (11.6-14.6)
[2025-02-04 07:16] LABS: CREATININE 1.0 mg/dL (0.6-1.3); UREA NITROGEN BLOOD 34 mg/dL (9-23)
[2025-02-04 07:18] LABS: ASPARTATE AMINOTRANSFERASE 16 IU/L (<34); BILIRUBIN DIRECT 0.1 mg/dL (<=3.0); BILIRUBIN TOTAL 0.2 mg/dL (0.1-1.0); PHOSPHORUS 2.9 mg/dL (2.5-4.9)
[2025-02-04 07:19] LABS: PROTEIN TOTAL 5.4 g/dL (6.0-8.3)
[2025-02-04 10:34] LABS: BAND% 16.0 % (1.0-6.0); LYMPHOCYTES % MANUAL 6.0 % (20.0-50.0); MONOCYTES % MANUAL 21.0 % (2.0-8.0); NEUTROPHILS % MANUAL 57.0 % (45.0-75.0); PLATELET ESTIMATE INCREASED
[2025-02-04] MEDS: ENOXAPARIN 40MG/0.4ML SYR SUBCUT SCH (11:55)
[2025-02-04] MEDS: PIPERACILLIN/TAZO 3.375G/50ML IV SCH (16:43)
[2025-02-05] VITALS (106 sets, daily range): BP systolic 105–154; BP diastolic 72–102; PULSE 63–98; RESP 13–43; TEMP 36.6–36.8; O2SAT 91–100
[2025-02-05] MEDS: METHYLPREDNISOLONE SOD SUCC 40MG/ML (ACT-O-VIAL) IV SCH (05:25)
[2025-02-05 05:47] LABS: PLATELET 471 x1000/uL (130-400); RED BLOOD CELL COUNT 3.46 mill/uL (4.7-6.1); RED CELL DISTRIBUTION WIDTH 13.9 % (11.6-14.6)
[2025-02-05 06:21] LABS: CREATININE 0.8 mg/dL (0.6-1.3); UREA NITROGEN BLOOD 30 mg/dL (9-23)
[2025-02-05 06:23] LABS: PHOSPHORUS 2.3 mg/dL (2.5-4.9)
[2025-02-05] MEDS ORDERED: DEXMEDETOMIDINE 100 ML IV PRN (10:30)
[2025-02-05] MEDS: POTASSIUM PHOSPHATE 15 MMOL in DEXT 5% WATER 245 ML IV SCH (11:00)
[2025-02-05] MEDS: DEXMEDETOMIDINE 250 ML IV PRN (11:54)
[2025-02-06] VITALS (106 sets, daily range): BP systolic 93–137; BP diastolic 63–95; PULSE 57–94; RESP 16–42; TEMP 36.4–37.2; O2SAT 91–99
[2025-02-06 06:16] LABS: CREATININE 0.9 mg/dL (0.6-1.3); UREA NITROGEN BLOOD 28 mg/dL (9-23)
[2025-02-06 09:55] LABS: BG BASE EXCESS -1.2 mmol/L (-2.0-3.0); BG CARBOXYHEMOGLOBIN 1.2 % (0.5-1.5); BG DEOXYHEMOGLOBIN 6.7 % (0.0-5.0); BG FRACTION INSPIRED OXYGEN 40; BG HCO3 ACT 23.5 mmol/L (21.0-28.0); BG METHEMOGLOBIN 0.3 % (0.5-1.5); BG OXYGEN SATURATION 93.2 % (94.0-98.0); BG OXYHEMOGLOBIN 91.8 % (94.0-98.0); BG PCO2 39.3 mmHg (35.0-48.0); BG PEEP (cmH2O) 5.0 cmH2O; BG PH 7.395 (7.350-7.450); BG PIP 15.0 cmH2O; BG PO2 68.6 mmHg (83.0-108.0); BG SAMPLE SITE RIGHT RADIAL; BG TOTAL HEMOGLOBIN 12.1 g/dL (13.5-17.5); BG TOTAL RESPIRATORY RATE 38 b/min; BG VENT MODE VENT - P/C; BG VENT RATE 14.0 set
[2025-02-06] MEDS ORDERED: IPRATROPIUM/ALBUTEROL 0.5-3(2.5)MG/3ML NEB HHN PRN (10:45)
[2025-02-06] MEDS: IPRATROPIUM/ALBUTEROL 0.5-3(2.5)MG/3ML NEB HHN SCH (12:17)
[2025-02-06] MEDS: VANCOMYCIN 1.25GM/250ML 250 ML IV NR (14:06)
[2025-02-06] MEDS: QUETIAPINE FUMARATE 50MG TABLET PO SCH (21:20)
[2025-02-07] VITALS (106 sets, daily range): BP systolic 77–156; BP diastolic 60–99; PULSE 54–91; RESP 15–37; TEMP 36.4–37; O2SAT 97–100
[2025-02-07] MEDS: VANCOMYCIN 1GM PMX (XELLIA) 200 ML IV SCH ×2 (01:47→11:03)
[2025-02-07 07:06] LABS: CREATININE 1.0 mg/dL (0.6-1.3); UREA NITROGEN BLOOD 29 mg/dL (9-23)
[2025-02-07 07:11] LABS: BASOPHILS % 0.2 % (0.0-2.0); EOSINOPHILS % 1.6 % (0.0-5.0); HEMATOCRIT. 34.7 % (42.0-52.0); HEMOGLOBIN. 11.2 g/dL (14.0-18.0); LYMPHOCYTES % 11.5 % (20.0-50.0); MEAN PLATELET VOLUME 7.7 fl (7.4-10.4); MONOCYTES % 10.4 % (2.0-8.0); NEUTROPHILS % 76.3 % (40.0-76.0); PLATELET 463 x1000/uL (130-400); RED BLOOD CELL COUNT 3.62 mill/uL (4.7-6.1); RED CELL DISTRIBUTION WIDTH 14.0 % (11.6-14.6)
[2025-02-07] MEDS: PREDNISONE 10MG TABLET PO SCH (09:44)
[2025-02-07 11:11] LABS: BG BASE EXCESS -1.0 mmol/L (-2.0-3.0); BG CARBOXYHEMOGLOBIN 0.3 % (0.5-1.5); BG DEOXYHEMOGLOBIN 1.6 % (0.0-5.0); BG FRACTION INSPIRED OXYGEN 40; BG HCO3 ACT 21.3 mmol/L (21.0-28.0); BG METHEMOGLOBIN 0.3 % (0.5-1.5); BG OXYGEN SATURATION 98.4 % (94.0-98.0); BG OXYHEMOGLOBIN 97.8 % (94.0-98.0); BG PCO2 28.5 mmHg (35.0-48.0); BG PEEP (cmH2O) 8.0 cmH2O; BG PH 7.492 (7.350-7.450); BG PO2 112.0 mmHg (83.0-108.0); BG SAMPLE SITE RIGHT RADIAL; BG TOTAL HEMOGLOBIN 11.6 g/dL (13.5-17.5); BG VENT MODE VENT - P/C; BG VENT RATE 18.0 set
[2025-02-08] VITALS (99 sets, daily range): BP systolic 102–170; BP diastolic 70–122; PULSE 53–111; RESP 12–35; TEMP 36.6–37.2; O2SAT 64–100
[2025-02-08] MEDS: MIDAZOLAM 100MG/100ML PMX 100 ML IV PRN (01:55)
[2025-02-08 08:46] LABS: BG BASE EXCESS -2.6 mmol/L (-2.0-3.0); BG CARBOXYHEMOGLOBIN 0.9 % (0.5-1.5); BG DEOXYHEMOGLOBIN 3.0 % (0.0-5.0); BG FRACTION INSPIRED OXYGEN 30; BG HCO3 ACT 19.5 mmol/L (21.0-28.0); BG METHEMOGLOBIN 0.3 % (0.5-1.5); BG OXYGEN SATURATION 97.0 % (94.0-98.0); BG OXYHEMOGLOBIN 95.8 % (94.0-98.0); BG PCO2 25.8 mmHg (35.0-48.0); BG PEEP (cmH2O) 8.0 cmH2O; BG PH 7.496 (7.350-7.450); BG PO2 90.6 mmHg (83.0-108.0); BG SAMPLE SITE RIGHT RADIAL; BG TOTAL HEMOGLOBIN 11.2 g/dL (13.5-17.5); BG VENT MODE VENT - P/C; BG VENT RATE 18.0 set
[2025-02-08 09:10] LABS: CREATININE 1.0 mg/dL (0.6-1.3); UREA NITROGEN BLOOD 30 mg/dL (9-23)
[2025-02-08 16:40] LABS: BG BASE EXCESS -0.3 mmol/L (-2.0-3.0); BG CARBOXYHEMOGLOBIN 0.7 % (0.5-1.5); BG DEOXYHEMOGLOBIN 1.5 % (0.0-5.0); BG FRACTION INSPIRED OXYGEN 35; BG HCO3 ACT 22.4 mmol/L (21.0-28.0); BG METHEMOGLOBIN 0.3 % (0.5-1.5); BG OXYGEN SATURATION 98.5 % (94.0-98.0); BG OXYHEMOGLOBIN 97.5 % (94.0-98.0); BG PCO2 30.6 mmHg (35.0-48.0); BG PEEP (cmH2O) 5.0 cmH2O; BG PH 7.482 (7.350-7.450); BG PO2 116.4 mmHg (83.0-108.0); BG SAMPLE SITE RIGHT RADIAL; BG TOTAL HEMOGLOBIN 12.5 g/dL (13.5-17.5); BG VENT MODE VENT - CPAP
[2025-02-09] VITALS (70 sets, daily range): BP systolic 111–179; BP diastolic 68–117; PULSE 85–131; RESP 10–32; TEMP 36.3–37.2; O2SAT 96–100
[2025-02-09 06:37] LABS: HEMATOCRIT. 38.3 % (42.0-52.0); HEMOGLOBIN. 12.5 g/dL (14.0-18.0); MEAN PLATELET VOLUME 7.2 fl (7.4-10.4); PLATELET 604 x1000/uL (130-400); RED BLOOD CELL COUNT 4.11 mill/uL (4.7-6.1); RED CELL DISTRIBUTION WIDTH 13.9 % (11.6-14.6)
[2025-02-09 07:35] LABS: CREATININE 0.8 mg/dL (0.6-1.3)
[2025-02-09 07:36] LABS: UREA NITROGEN BLOOD 20 mg/dL (9-23)
[2025-02-09 10:21] LABS: BAND% 8.0 % (1.0-6.0); EOSINOPHILS % MANUAL 2.0 % (0.0-5.0); LYMPHOCYTES % MANUAL 9.0 % (20.0-50.0); MONOCYTES % MANUAL 9.0 % (2.0-8.0); NEUTROPHILS % MANUAL 72.0 % (45.0-75.0); PLATELET ESTIMATE INCREASED
[2025-02-09] MEDS: VANCOMYCIN 1G PREMIX 200 ML IV SCH (17:32)
[2025-02-10] VITALS (28 sets, daily range): BP systolic 103–137; BP diastolic 76–108; PULSE 92–118; RESP 17–29; TEMP 36.6–37.1; O2SAT 96–100
[2025-02-10 08:09] LABS: HEMATOCRIT. 38.7 % (42.0-52.0); HEMOGLOBIN. 12.3 g/dL (14.0-18.0); MEAN PLATELET VOLUME 7.4 fl (7.4-10.4); PLATELET 439 x1000/uL (130-400); RED BLOOD CELL COUNT 4.02 mill/uL (4.7-6.1); RED CELL DISTRIBUTION WIDTH 13.9 % (11.6-14.6)
[2025-02-10 08:23] LABS: UREA NITROGEN BLOOD 12 mg/dL (9-23)
[2025-02-10 08:24] LABS: CREATININE 0.7 mg/dL (0.6-1.3)
[2025-02-10 08:25] LABS: ASPARTATE AMINOTRANSFERASE 14 IU/L (<34)
[2025-02-10 08:27] LABS: BILIRUBIN DIRECT 0.2 mg/dL (<=3.0)
[2025-02-10 08:28] LABS: BILIRUBIN TOTAL 0.5 mg/dL (0.1-1.0); PHOSPHORUS 3.8 mg/dL (2.5-4.9); PROTEIN TOTAL 6.1 g/dL (6.0-8.3)
[2025-02-10 14:47] LABS: BAND% 11.0 % (1.0-6.0); EOSINOPHILS % MANUAL 4.0 % (0.0-5.0); LYMPHOCYTES % MANUAL 15.0 % (20.0-50.0); MONOCYTES % MANUAL 12.0 % (2.0-8.0); NEUTROPHILS % MANUAL 58.0 % (45.0-75.0); PLATELET ESTIMATE INCREASED
[2025-02-11] VITALS (17 sets, daily range): BP systolic 121–139; BP diastolic 80–111; PULSE 104–116; RESP 15–38; TEMP 36.3–37.4; O2SAT 97–99
[2025-02-11 12:40] LABS: HEMATOCRIT. 40.5 % (42.0-52.0); HEMOGLOBIN. 13.1 g/dL (14.0-18.0); MEAN PLATELET VOLUME 7.7 fl (7.4-10.4); PLATELET 532 x1000/uL (130-400); RED BLOOD CELL COUNT 4.33 mill/uL (4.7-6.1); RED CELL DISTRIBUTION WIDTH 14.0 % (11.6-14.6)
[2025-02-11 13:07] LABS: CREATININE 1.0 mg/dL (0.6-1.3); UREA NITROGEN BLOOD 23 mg/dL (9-23)
[2025-02-11 14:28] LABS: BAND% 16.0 % (1.0-6.0); EOSINOPHILS % MANUAL 1.0 % (0.0-5.0); LYMPHOCYTES % MANUAL 10.0 % (20.0-50.0); MONOCYTES % MANUAL 6.0 % (2.0-8.0); NEUTROPHILS % MANUAL 67.0 % (45.0-75.0); PLATELET ESTIMATE INCREASED
[2025-02-12] VITALS (13 sets, daily range): BP systolic 110–147; BP diastolic 84–96; PULSE 102–113; RESP 19–33; TEMP 36.7–37; O2SAT 86–100
[2025-02-12 07:05] LABS: BASOPHILS % 0.3 % (0.0-2.0); EOSINOPHILS % 1.1 % (0.0-5.0); HEMATOCRIT. 39.8 % (42.0-52.0); HEMOGLOBIN. 13.2 g/dL (14.0-18.0); LYMPHOCYTES % 8.5 % (20.0-50.0); MEAN PLATELET VOLUME 7.3 fl (7.4-10.4); MONOCYTES % 13.0 % (2.0-8.0); NEUTROPHILS % 77.1 % (40.0-76.0); PLATELET 494 x1000/uL (130-400); RED BLOOD CELL COUNT 4.25 mill/uL (4.7-6.1); RED CELL DISTRIBUTION WIDTH 14.2 % (11.6-14.6)
[2025-02-12 07:22] LABS: CREATININE 0.9 mg/dL (0.6-1.3)
[2025-02-12 07:23] LABS: UREA NITROGEN BLOOD 21 mg/dL (9-23)
[2025-02-12 07:24] LABS: PHOSPHORUS 3.8 mg/dL (2.5-4.9)
[2025-02-13] VITALS (13 sets, daily range): BP systolic 118–147; BP diastolic 84–104; PULSE 89–119; RESP 17–31; TEMP 36–37.3; O2SAT 95–100
[2025-02-13] MEDS: METOPROLOL TARTRATE 25MG TABLET PO SCH (21:00)
[2025-02-13] MEDS: LACTOBACILLUS RHAMNOSUS GG CAP PO SCH (21:00)
[2025-02-13] MEDS ORDERED: NICOTINE 14MG PATCH TD SCH (23:00)
[2025-02-14] VITALS: BP 123/94; PULSE 108; RESP 22; TEMP 36.6; O2SAT 99
[2025-02-14 04:00] VITALS: BP 148/93; PULSE 108; RESP 18; TEMP 36.6; O2SAT 99
[2025-02-14 08:00] VITALS: BP 161/109; PULSE 100; RESP 20; TEMP 36.5; O2SAT 98
[2025-02-14 12:00] VITALS: BP 145/93; PULSE 100; RESP 22; TEMP 36.6; O2SAT 97
[2025-02-14 16:00] VITALS: BP 120/81; PULSE 100; RESP 18; TEMP 36.8; O2SAT 97
[2025-02-14 20:00] VITALS: BP 116/85; PULSE 101; RESP 22; TEMP 35.9; O2SAT 96
[2025-02-15] VITALS: BP 133/89; PULSE 98; RESP 18; TEMP 36.6; O2SAT 97
[2025-02-15 04:00] VITALS: BP 116/88; PULSE 99; RESP 22; TEMP 36.1; O2SAT 98
[2025-02-15 08:00] VITALS: BP 122/85; PULSE 104; RESP 18; TEMP 35.7; O2SAT 97
[2025-02-15 12:00] VITALS: BP 122/79; PULSE 99; RESP 18; TEMP 35.9; O2SAT 97
[2025-02-15 16:00] VITALS: BP 131/90; PULSE 110; RESP 18; TEMP 35.8; O2SAT 98
[2025-02-15 20:00] VITALS: BP 147/92; PULSE 107; RESP 20; TEMP 36.6; O2SAT 94
[2025-02-16] VITALS: BP 130/86; PULSE 102; RESP 19; TEMP 36.1; O2SAT 96
[2025-02-16 04:00] VITALS: BP 142/86; PULSE 108; RESP 21; TEMP 36; O2SAT 96
[2025-02-16 08:00] VITALS: BP 150/120; PULSE 98; RESP 18; TEMP 36.9; O2SAT 98
[2025-02-16 12:00] VITALS: BP 129/88; PULSE 107; RESP 18; TEMP 36.6; O2SAT 98
[2025-02-16 16:00] VITALS: BP 113/86; PULSE 107; RESP 18; TEMP 36.2; O2SAT 98
[2025-02-16 20:00] VITALS: BP 118/85; PULSE 105; RESP 20; TEMP 36.7; O2SAT 100
[2025-02-17] VITALS: BP 122/83; PULSE 96; RESP 20; TEMP 36.2; O2SAT 96
[2025-02-17 04:00] VITALS: BP 134/96; PULSE 98; RESP 18; TEMP 36.4; O2SAT 98
[2025-02-17 08:00] VITALS: BP 129/89; PULSE 89; RESP 18; TEMP 35.9; O2SAT 98
[2025-02-17 11:37] LABS: BASOPHILS % 0.2 % (0.0-2.0); EOSINOPHILS % 0.5 % (0.0-5.0); HEMATOCRIT. 44.2 % (42.0-52.0); HEMOGLOBIN. 14.6 g/dL (14.0-18.0); LYMPHOCYTES % 12.4 % (20.0-50.0); MEAN PLATELET VOLUME 8.1 fl (7.4-10.4); MONOCYTES % 7.2 % (2.0-8.0); NEUTROPHILS % 79.7 % (40.0-76.0); PLATELET 651 x1000/uL (130-400); RED BLOOD CELL COUNT 4.74 mill/uL (4.7-6.1); RED CELL DISTRIBUTION WIDTH 14.4 % (11.6-14.6)
[2025-02-17 11:51] LABS: UREA NITROGEN BLOOD 56.0 mg/dL (9-23)
[2025-02-17 12:00] VITALS: BP 125/81; PULSE 57; RESP 17; TEMP 36.2; TEMP 36.4; O2SAT 98
[2025-02-17 12:19] LABS: CREATININE 1.5 mg/dL (0.6-1.3)
[2025-02-17 16:00] VITALS: BP 120/77; PULSE 80; RESP 16; TEMP 35.7; O2SAT 98
[2025-02-17] MEDS ORDERED: HYDRALAZINE 10 MG in SODIUM CHLORIDE 0.9% 49.5 ML IV PRN (17:00)
[2025-02-17 20:00] VITALS: BP 148/102; PULSE 92; RESP 19; TEMP 36.3; O2SAT 95
[2025-02-18] VITALS: BP 101/62; PULSE 107; RESP 19; TEMP 36.2; O2SAT 96
[2025-02-18 04:00] VITALS: BP 132/87; PULSE 95; RESP 18; TEMP 36.3; O2SAT 95
[2025-02-18 08:00] VITALS: BP 128/92; PULSE 103; RESP 17; TEMP 36.5; O2SAT 97
[2025-02-18] MEDS: FAMOTIDINE 20MG/2ML VIAL IV SCH (09:06)
[2025-02-18] MEDS ORDERED: SODIUM CHLORIDE 0.9% 1,000 ML IV NR (11:15)
[2025-02-18 12:00] VITALS: BP 116/82; PULSE 91; RESP 18; TEMP 36.5; O2SAT 95
[2025-02-18 14:06] LABS: BASOPHILS % 0.1 % (0.0-2.0); EOSINOPHILS % 1.8 % (0.0-5.0); HEMATOCRIT. 44.8 % (42.0-52.0); HEMOGLOBIN. 14.2 g/dL (14.0-18.0); LYMPHOCYTES % 13.5 % (20.0-50.0); MEAN PLATELET VOLUME 7.4 fl (7.4-10.4); MONOCYTES % 8.8 % (2.0-8.0); NEUTROPHILS % 75.8 % (40.0-76.0); PLATELET 428 x1000/uL (130-400); RED BLOOD CELL COUNT 4.67 mill/uL (4.7-6.1); RED CELL DISTRIBUTION WIDTH 14.7 % (11.6-14.6)
[2025-02-18 14:17] LABS: CREATININE 1.1 mg/dL (0.6-1.3); UREA NITROGEN BLOOD 44 mg/dL (9-23)
[2025-02-18 16:00] VITALS: BP 125/86; PULSE 99; RESP 18; TEMP 36.6; O2SAT 95
[2025-02-18 20:00] VITALS: BP 114/81; PULSE 95; RESP 18; TEMP 36.6; O2SAT 95
[2025-02-19] VITALS (7 sets, daily range): BP systolic 114–163; BP diastolic 70–95; PULSE 100–116; RESP 17–22; TEMP 36.2–36.5; O2SAT 95–96
[2025-02-19] MEDS ORDERED: HYDROCODONE/ACETAMINOPHEN 5/325MG TABLET PO PRN (07:45)
[2025-02-20 04:00] VITALS: BP 104/81; PULSE 100; RESP 18; TEMP 36.4; O2SAT 100
[2025-02-20 08:00] VITALS: BP 114/90; PULSE 94; RESP 16; TEMP 36.3; O2SAT 98
[2025-02-20 12:00] VITALS: BP 107/73; PULSE 91; RESP 18; TEMP 36.4; O2SAT 98
[2025-02-20 16:00] VITALS: BP 113/66; PULSE 90; RESP 17; TEMP 36.4; O2SAT 97
[2025-02-20 20:00] VITALS: BP 118/91; PULSE 88; RESP 18; TEMP 36.5; O2SAT 95
[2025-02-21] VITALS: BP 130/87; PULSE 84; RESP 18; TEMP 36.4; O2SAT 98
[2025-02-21 04:00] VITALS: BP 130/91; PULSE 91; RESP 18; TEMP 36.6; O2SAT 96
[2025-02-21 08:00] VITALS: BP 136/88; PULSE 91; RESP 19; TEMP 35.6; O2SAT 98
[2025-02-21 12:00] VITALS: BP 124/83; PULSE 82; RESP 18; TEMP 36.5; O2SAT 97
[2025-02-21 16:00] VITALS: BP 109/75; PULSE 88; RESP 18; TEMP 36.6; O2SAT 95
[2025-02-21 20:00] VITALS: BP 137/89; PULSE 107; RESP 18; TEMP 35.8; O2SAT 98
[2025-02-21 22:37] LABS: CREATININE 0.8 mg/dL (0.6-1.3)
[2025-02-21 22:38] LABS: UREA NITROGEN BLOOD 15 mg/dL (9-23)
[2025-02-22] VITALS: BP 112/83; PULSE 93; RESP 18; TEMP 36.3; O2SAT 97
[2025-02-22 04:00] VITALS: BP 122/74; PULSE 101; RESP 18; TEMP 36.4; O2SAT 97
[2025-02-22 08:00] VITALS: BP 113/82; PULSE 107; RESP 17; TEMP 35.9; O2SAT 98
[2025-02-22 12:00] VITALS: BP 99/61; PULSE 86; RESP 12; TEMP 36.3; O2SAT 95
[2025-02-22 16:00] VITALS: BP 117/78; PULSE 89; RESP 20; TEMP 37.2; O2SAT 95
[2025-02-22 20:00] VITALS: BP 130/83; PULSE 104; RESP 18; TEMP 36.6; O2SAT 96
[2025-02-23] VITALS: BP 113/81; PULSE 86; RESP 18; TEMP 36.4; O2SAT 100
[2025-02-23 04:00] VITALS: BP 133/88; PULSE 80; RESP 18; TEMP 36.4; O2SAT 99
[2025-02-23 12:00] VITALS: BP 110/72; PULSE 95; RESP 14; TEMP 36.4; O2SAT 94
[2025-02-23 14:09] LABS: CREATININE 0.7 mg/dL (0.6-1.3); UREA NITROGEN BLOOD 21 mg/dL (9-23)
[2025-02-23 16:00] VITALS: BP 131/83; PULSE 101; RESP 15; TEMP 36.2
[2025-02-23 20:00] VITALS: BP 123/80; PULSE 110; RESP 18; TEMP 37.1
[2025-02-24] VITALS (7 sets, daily range): BP systolic 101–142; BP diastolic 68–83; PULSE 85–103; RESP 17–19; TEMP 36.4–37.6; O2SAT 96–98
[2025-02-25] VITALS: BP 124/80; PULSE 80; RESP 18; TEMP 36.3; O2SAT 96
[2025-02-25 04:00] VITALS: BP 136/88; PULSE 79; RESP 16; TEMP 36.3; O2SAT 98
[2025-02-25 08:00] VITALS: BP 117/84; PULSE 68; RESP 16; TEMP 36.4; O2SAT 99
[2025-02-25 08:32] LABS: BASOPHILS % 0.2 % (0.0-2.0); EOSINOPHILS % 1.0 % (0.0-5.0); HEMATOCRIT. 39.8 % (42.0-52.0); HEMOGLOBIN. 12.9 g/dL (14.0-18.0); LYMPHOCYTES % 30.5 % (20.0-50.0); MEAN PLATELET VOLUME 7.2 fl (7.4-10.4); MONOCYTES % 8.8 % (2.0-8.0); NEUTROPHILS % 59.5 % (40.0-76.0); PLATELET 475 x1000/uL (130-400); RED BLOOD CELL COUNT 4.36 mill/uL (4.7-6.1); RED CELL DISTRIBUTION WIDTH 14.0 % (11.6-14.6)
[2025-02-25 08:51] LABS: UREA NITROGEN BLOOD 18 mg/dL (9-23)
[2025-02-25 08:52] LABS: CREATININE 0.8 mg/dL (0.6-1.3)
[2025-02-25 12:00] VITALS: BP 130/90; PULSE 81; RESP 17; TEMP 36.6; O2SAT 98
[2025-02-25] MEDS: SODIUM ZIRCONIUM CYCLOSILICATE 10GM/PACKET PO SCH (12:15)
[2025-02-25 13:57] LABS: CREATININE 0.7 mg/dL (0.6-1.3); UREA NITROGEN BLOOD 17 mg/dL (9-23)
[2025-02-25 16:00] VITALS: BP 132/89; PULSE 84; RESP 16; TEMP 36.7; O2SAT 98
[2025-02-25 20:00] VITALS: BP 129/89; PULSE 91; RESP 17; TEMP 36.3; O2SAT 98
[2025-02-26] VITALS: BP 127/87; PULSE 93; RESP 18; TEMP 36.2; O2SAT 100
[2025-02-26] MEDS: FAMOTIDINE 20MG TABLET PO SCH (09:44)
[2025-02-26 12:00] VITALS: BP 138/87; PULSE 99; RESP 18; TEMP 37; O2SAT 95
[2025-02-26] MEDS: NICOTINE 14MG PATCH TD SCH (13:15)
[2025-02-26] MEDS: LORAZEPAM 2MG/ML UD SYRINGE IM SCH ×2 (13:22→17:33)
[2025-02-26] MEDS: DIPHENHYDRAMINE 50MG/ML VIAL IM SCH ×2 (13:22→17:33)
[2025-02-26] MEDS: HALOPERIDOL LACTATE 5MG/ML VIAL IM SCH ×2 (13:23→17:33)
[2025-02-26 16:00] VITALS: BP 123/79; PULSE 97; RESP 20; TEMP 36.4; O2SAT 100
[2025-02-26 20:00] VITALS: BP 132/76; PULSE 84; RESP 19; TEMP 36.3; O2SAT 97
[2025-02-27 08:00] VITALS: BP 129/94; PULSE 101; RESP 19; TEMP 36.5; O2SAT 100
[2025-02-27] MEDS: OLANZAPINE 5MG TABLET ODT PO SCH (09:00)
[2025-02-27] MEDS: QUETIAPINE FUMARATE 25MG TABLET PO SCH (09:00)
[2025-02-27 09:41] LABS: BASOPHILS % 0.2 % (0.0-2.0); EOSINOPHILS % 1.3 % (0.0-5.0); HEMATOCRIT. 34.0 % (42.0-52.0); HEMOGLOBIN. 11.2 g/dL (14.0-18.0); LYMPHOCYTES % 22.9 % (20.0-50.0); MEAN PLATELET VOLUME 6.8 fl (7.4-10.4); MONOCYTES % 10.2 % (2.0-8.0); NEUTROPHILS % 65.4 % (40.0-76.0); PLATELET 487 x1000/uL (130-400); RED BLOOD CELL COUNT 3.79 mill/uL (4.7-6.1); RED CELL DISTRIBUTION WIDTH 14.1 % (11.6-14.6)
[2025-02-27 09:57] LABS: CREATININE 0.5 mg/dL (0.6-1.3); UREA NITROGEN BLOOD 15 mg/dL (9-23)
[2025-02-27 12:00] VITALS: BP 127/89; PULSE 81; RESP 20; TEMP 36.8; O2SAT 100
[2025-02-27 16:00] VITALS: BP 116/89; PULSE 88; RESP 18; TEMP 36.4; O2SAT 99
[2025-02-27 20:00] VITALS: BP 119/81; PULSE 100; RESP 19; TEMP 36.5; O2SAT 96
[2025-02-28] VITALS: BP 116/82; PULSE 100; RESP 19; TEMP 36.3
[2025-02-28 04:00] VITALS: BP 143/85; PULSE 91; RESP 18; TEMP 37.2
[2025-02-28 08:00] VITALS: BP 127/86; PULSE 74; RESP 16; TEMP 36.3
[2025-02-28 16:00] VITALS: BP 106/67; PULSE 81; RESP 18; TEMP 35.4; O2SAT 96
[2025-02-28 20:00] VITALS: BP 114/71; PULSE 106; RESP 18; TEMP 38.8; O2SAT 100
[2025-02-28 21:00] VITALS: TEMP 37.2
[2025-03-01] VITALS: BP 141/77; PULSE 86; RESP 18; TEMP 36.4; O2SAT 97
[2025-03-01 04:00] VITALS: BP 121/76; PULSE 102; RESP 18; TEMP 36.1; O2SAT 97
[2025-03-01 08:00] VITALS: BP 120/72; PULSE 78; RESP 17; TEMP 36.7; O2SAT 98
[2025-03-01] MEDS: LEVOFLOXACIN 250MG TABLET PO SCH (08:45)
[2025-03-01 12:00] VITALS: BP 129/84; PULSE 70; RESP 16; TEMP 36.3; O2SAT 97
[2025-03-01 16:00] VITALS: BP 125/80; PULSE 77; RESP 18; TEMP 36.7; O2SAT 98
[2025-03-01 20:00] VITALS: BP 125/87; PULSE 62; RESP 14; TEMP 38.8; O2SAT 96
[2025-03-01] MEDS: ACETAMINOPHEN 325MG TABLET PO PRN (22:45)
[2025-03-02] VITALS: BP 97/66; PULSE 81; RESP 18; TEMP 36.6; O2SAT 98
[2025-03-02 04:00] VITALS: BP 110/66; PULSE 77; RESP 18; TEMP 36.8; O2SAT 97
[2025-03-02 08:00] VITALS: BP 122/80; PULSE 94; RESP 18; TEMP 36.4; O2SAT 97
[2025-03-02 12:00] VITALS: BP 100/63; PULSE 84; RESP 18; TEMP 36.4; O2SAT 98
[2025-03-02 16:00] VITALS: BP 99/62; PULSE 84; RESP 18; TEMP 36.1; O2SAT 97
[2025-03-02 20:00] VITALS: BP 123/87; PULSE 95; RESP 18; TEMP 36.6; O2SAT 95
[2025-03-03] VITALS: BP 124/78; PULSE 105; RESP 18; TEMP 36.7; O2SAT 92
[2025-03-03 04:00] VITALS: BP 122/75; PULSE 101; RESP 18; TEMP 36.8; O2SAT 95
[2025-03-03 08:00] VITALS: BP 107/68; PULSE 89; RESP 19; TEMP 36.4; O2SAT 95
[2025-03-03] MEDS: SERTRALINE HCL 25MG TABLET PO SCH (09:00)
[2025-03-03] MEDS: IOHEXOL-300 100 ML BOTTLE ONE (09:15)
[2025-03-03 12:00] VITALS: BP 121/83; PULSE 83; RESP 18; TEMP 35.9; O2SAT 99
[2025-03-03 16:00] VITALS: BP 144/96; PULSE 101; RESP 18; TEMP 36.4; O2SAT 96
[2025-03-03 20:00] VITALS: BP 157/92; PULSE 91; RESP 20; TEMP 36.9; O2SAT 100
[2025-03-04] VITALS: BP 124/66; PULSE 99; RESP 18; TEMP 36.7; O2SAT 98
[2025-03-04 04:00] VITALS: BP 119/68; PULSE 88; RESP 18; TEMP 36.7; O2SAT 99
[2025-03-04 08:00] VITALS: BP 123/84; PULSE 89; RESP 17; TEMP 36.4; O2SAT 97
[2025-03-04 16:00] VITALS: BP 128/89; PULSE 90; RESP 17; TEMP 36.6; O2SAT 98
[2025-03-04 20:00] VITALS: BP 132/89; PULSE 97; RESP 19; TEMP 37.4; O2SAT 95
[2025-03-05] VITALS: BP 134/88; PULSE 82; RESP 16; TEMP 35.9; O2SAT 98
[2025-03-05 04:00] VITALS: BP 120/70; PULSE 81; RESP 16; TEMP 36.4; O2SAT 98
[2025-03-05 08:00] VITALS: BP 139/95; PULSE 74; RESP 16; TEMP 36.4; O2SAT 97
[2025-03-05 12:00] VITALS: BP 132/85; PULSE 82; RESP 17; TEMP 36.4; O2SAT 98
[2025-03-05 16:00] VITALS: BP 137/82; PULSE 84; RESP 16; TEMP 36.4; O2SAT 98
[2025-03-05 20:00] VITALS: BP 119/70; PULSE 103; RESP 16; TEMP 36.2; O2SAT 97
[2025-03-06 00:39] VITALS: BP 118/70; PULSE 73; RESP 16; TEMP 36.7; O2SAT 94
[2025-03-06 04:00] VITALS: BP 130/76; PULSE 92; RESP 19; TEMP 36.3; O2SAT 97
[2025-03-06 08:00] VITALS: PULSE 94; RESP 18; TEMP 36.7; O2SAT 95
[2025-03-06 16:00] VITALS: BP 138/91; PULSE 79; RESP 18; TEMP 36.4; O2SAT 100
[2025-03-06 20:00] VITALS: BP 130/97; PULSE 97; RESP 18; TEMP 36.5; O2SAT 100
[2025-03-07] VITALS: BP 108/74; PULSE 85; RESP 18; TEMP 36.3; O2SAT 98
[2025-03-07 04:00] VITALS: BP 116/81; PULSE 61; RESP 17; TEMP 36.4; O2SAT 97
[2025-03-07 12:00] VITALS: BP 114/78; PULSE 98; RESP 16; TEMP 35.7; O2SAT 99
[2025-03-07 16:00] VITALS: BP 105/77; PULSE 101; RESP 17; TEMP 35.7; O2SAT 95
[2025-03-07 16:25] LABS: BASOPHILS % 0.3 % (0.0-2.0); EOSINOPHILS % 2.3 % (0.0-5.0); HEMATOCRIT. 30.2 % (42.0-52.0); HEMOGLOBIN. 10.0 g/dL (14.0-18.0); LYMPHOCYTES % 26.5 % (20.0-50.0); MEAN PLATELET VOLUME 6.4 fl (7.4-10.4); MONOCYTES % 13.3 % (2.0-8.0); NEUTROPHILS % 57.6 % (40.0-76.0); PLATELET 446 x1000/uL (130-400); RED BLOOD CELL COUNT 3.41 mill/uL (4.7-6.1); RED CELL DISTRIBUTION WIDTH 13.8 % (11.6-14.6)
[2025-03-07 16:51] LABS: CREATININE 0.7 mg/dL (0.6-1.3); UREA NITROGEN BLOOD 10 mg/dL (9-23)
[2025-03-07 20:00] VITALS: BP 136/90; PULSE 88; RESP 18; TEMP 36.6; O2SAT 98
[2025-03-08 04:00] VITALS: BP 127/84; PULSE 91; RESP 18; TEMP 35.5; O2SAT 97
[2025-03-08] MEDS: MAGNESIUM/ALUMINUM HYDROXIDE/SIMETHICONE 30ML UDC PO PRN (06:10)
[2025-03-08 08:00] VITALS: BP 123/76; PULSE 94; RESP 17; TEMP 37.2; O2SAT 99
[2025-03-08 12:00] VITALS: BP_SYST 138; BP_SYST 95; BP_DIAS 62; BP_DIAS 90; PULSE 102; PULSE 75; RESP 18; TEMP 36.7; O2SAT 100
[2025-03-08 16:00] VITALS: BP 102/71; PULSE 77; RESP 18; TEMP 37; O2SAT 100
[2025-03-08 20:00] VITALS: BP 141/82; PULSE 96; RESP 18; TEMP 36.3; O2SAT 92
[2025-03-09] VITALS: BP 106/65; PULSE 81; RESP 19; TEMP 37.2; O2SAT 98
[2025-03-09 04:00] VITALS: BP 119/76; PULSE 78; RESP 18; TEMP 36.4; O2SAT 93
[2025-03-09 08:00] VITALS: BP 134/82; PULSE 88; RESP 18; TEMP 37.1; O2SAT 100
== END 2025-03-09 13:35 | disposition left against medical advice (07) | DRG 720 ==
LOC: ER 12:09 → EDBEDREQ 19:38 → EDBEDREQTM 19:38 → ENRESERV 21:23 → CVICU 21:48 → 8WST 01-29 05:55 → 5EST 02-02 12:57 → CVICU 02-02 21:52 → 5EST 02-11 03:21 → 8WST 02-13 12:53 → 4WST 02-16 22:10 → 7EST 02-19 18:40
PROVIDERS: ADMIT Internal Medicine; ATTEND Internal Medicine
PROC: 5A0945A Assistance with Respiratory Ventilation, 24-96 Consecutive Hours, High Flow/Velocity Cannula (ICD-10-PCS; 2025-01-24)
PROC: 5A1955Z Respiratory Ventilation, Greater than 96 Consecutive Hours (ICD-10-PCS; principal; 2025-02-02)
PROC: 0BH17EZ Insertion of Endotracheal Airway into Trachea, Via Natural or Artificial Opening (ICD-10-PCS; 2025-02-02)
PROC: 02HV33Z Insertion of Infusion Device into Superior Vena Cava, Percutaneous Approach (ICD-10-PCS; 2025-02-02)
PROC: B548ZZA Ultrasonography of Superior Vena Cava, Guidance (ICD-10-PCS; 2025-02-02)
PROC: 5A0935A Assistance with Respiratory Ventilation, Less than 24 Consecutive Hours, High Flow/Velocity Cannula (ICD-10-PCS; 2025-02-02)
DX: A41.9 Sepsis, unspecified organism (principal); N17.0 Acute kidney failure with tubular necrosis; R65.21 Severe sepsis with septic shock; J96.01 Acute respiratory failure with hypoxia; G92.8 Other toxic encephalopathy; J15.212 Pneumonia due to Methicillin resistant Staphylococcus aureus; R57.1 Hypovolemic shock; L03.115 Cellulitis of right lower limb; L03.116 Cellulitis of left lower limb; L02.416 Cutaneous abscess of left lower limb; L02.415 Cutaneous abscess of right lower limb; D64.9 Anemia, unspecified; F10.239 Alcohol dependence with withdrawal, unspecified; I10 Essential (primary) hypertension; F14.10 Cocaine abuse, uncomplicated; K76.9 Liver disease, unspecified; Z20.822 Contact with and (suspected) exposure to COVID-19; E87.20 Acidosis, unspecified; E87.5 Hyperkalemia; E86.9 Volume depletion, unspecified; I87.2 Venous insufficiency (chronic) (peripheral); I87.8 Other specified disorders of veins; L30.4 Erythema intertrigo; L85.3 Xerosis cutis; E83.42 Hypomagnesemia; E87.0 Hyperosmolality and hypernatremia; E83.39 Other disorders of phosphorus metabolism; E86.0 Dehydration; R62.7 Adult failure to thrive; K82.8 Other specified diseases of gallbladder; G35.D Multiple sclerosis, unspecified; M62.82 Rhabdomyolysis; F13.10 Sedative, hypnotic or anxiolytic abuse, uncomplicated; K57.30 Diverticulosis of large intestine without perforation or abscess without bleeding; R13.10 Dysphagia, unspecified; F11.10 Opioid abuse, uncomplicated; F15.10 Other stimulant abuse, uncomplicated; Z53.29 Procedure and treatment not carried out because of patient's decision for other reasons; Z78.1 Physical restraint status; Z79.899 Other long term (current) drug therapy; Z68.1 Body mass index [BMI] 19.9 or less, adult; Z59.00 Homelessness unspecified
CPT/HCPCS: 31720; 36415; 36600; 71045; 71250; 73700; 74176; 74178; 76604; 76705; 80048; 80051; 80053; 80076; 80202; 80305; 80320; 81003; 82105; 82140; 82270; 82375; 82378; 82550; 82803; 82805; 82962; 83605; 83735; 84100; 84132; 84134; 84145; 84153; 84443; 84484; 85025; 85027; 86705; 86709; 87015; 87045; 87070; 87077; 87186; 87340; 87426; 87427; 87449; 89055; 92610; 93005; 93970; 94003; 94070; 94640; 94660; 94664; 94760; 97162; 97164; 97165; 97168; 97530; 98960; 99291; 99292; A4606; A6449; J0360; J0612; J1200; J1308; J1630; J1650; J1815; J2060; J2250; J2470; J2543; J2919; J3373; J3411; J3475; J3490; J7030; J7060; J7131; J7512; J7608; Q9967; G0480